=== PATIENT | female | born 1990 | race Two or more races ===

== ENCOUNTER 2021-10-24 06:37 | Inpatient (IN) | payer OTHER ==
[2021-10-24] VITALS (7 sets, daily range): BP systolic 101–122; BP diastolic 55–80
[~2021-10-24] VITALS: Ht 167.6 cm; Wt 78.2 kg
[2021-10-24] MEDS ORDERED: OXYTOCIN INJ 10 UNITS/ML VIAL (J2590) IV PRN (07:25)
[2021-10-24] MEDS ORDERED: TRANEXAMIC ACID INJection 1,000 MG in NS 100 ML IV PRN (07:25)
[2021-10-24] MEDS ORDERED: METHYLERGONOVINE MALEATE 0.2 MG/ML VIAL (J2210) IM PRN (07:25)
[2021-10-24] MEDS ORDERED: LIDOCAINE 1% MDV 20ML VIAL INFIL PRN (07:25)
[2021-10-24] MEDS ORDERED: OXYTOCIN DRIP 30 UNITS in IV 1 EA IV PRN ×4 (07:25)
[2021-10-24] MEDS ORDERED: CARBOPROST TROMETHAMINE 250 MCG/ML AMP IM PRN (07:25)
[2021-10-24 08:28] LABS: HEMATOCRIT 35.7 % (36.0-47.0); HEMOGLOBIN 12.3 g/dl (12.0-15.5); MEAN CORPUSCULAR HEMOGLOBIN 30.8 pg (27.0-33.0); MEAN CORPUSCULAR HGB CONC 34.5 g/dl (32.0-36.5); MEAN CORPUSCULAR VOLUME 89.3 fl (80.0-96.0); PLATELET COUNT, AUTOMATED 213 10^3/uL (150-450); WHITE BLOOD COUNT 19.5 10^3/uL (4.0-10.0)
[2021-10-24] MEDS ORDERED: PRENATAL VITAMINS CHEWABLE TABLET PO SCH (09:00)
[2021-10-24] MEDS ORDERED: DOCUSATE SODIUM 100MG CAPSULE PO PRN (09:20)
[2021-10-24] MEDS ORDERED: METHYLERGONOVINE MALEATE 0.2 MG TAB PO PRN (09:20)
[2021-10-24] MEDS ORDERED: DIBUCAINE 1% OINTMENT 30GM TOP PRN (09:20)
[2021-10-24] MEDS ORDERED: IBUPROFEN 800 MG TAB PO PRN (09:20)
[2021-10-24] MEDS ORDERED: ACETAMINOPHEN 500 MG TAB PO PRN (09:20)
[2021-10-24] MEDS ORDERED: ACETAMINOPHEN TAB 650MG DOSE (2X325MG) PO PRN (09:20)
[2021-10-24] MEDS ORDERED: IBUPROFEN 600MG TAB PO PRN (09:20)
[2021-10-25 05:32] VITALS: BP 107/62
[2021-10-25] MEDS ORDERED: COLA100C5 PO (07:29)
[2021-10-25] MEDS ORDERED: IBUP-1022 PO (07:29)
[2021-10-25] MEDS ORDERED: PRENCHW PO (07:29)
== END 2021-10-25 12:10 | disposition home or self-care (01) | DRG 807 ==
LOC: M LDO 06:37 → M LDI 07:06 → EDBD 07:06 → M OBS 10:41
PROVIDERS: ADMIT Advanced Practice Midwife; ATTEND Advanced Practice Midwife
PROC: 10E0XZZ Delivery of Products of Conception, External Approach (ICD-10-PCS; principal; 2021-10-24)
DX: O69.1XX0 Labor and delivery complicated by cord around neck, with compression, not applicable or unspecified (principal); Z37.0 Single live birth; Z3A.39 39 weeks gestation of pregnancy

== ENCOUNTER → 2024-01-07 | Outpatient (CLI) | payer OTHER ==
[~2024-01-07] MED LIST: COLA100C5 PO; IBUP-1022 PO; PRENCHW PO
== END ==
LOC: M RAD 12:22
PROVIDERS: ATTEND Orthopaedic Surgery
DX: M25.571 Pain in right ankle and joints of right foot (principal); M67.471 Ganglion, right ankle and foot

== ENCOUNTER 2024-10-30 06:22 | Day surgery (SDC) | payer OTHER ==
[~2024-10-30] VITALS: Ht 170.2 cm; Wt 68.0 kg
[~2024-10-30 06:22] MED LIST changes: +BUPR150T12 PO; +CELE0.09 PO; +DROS3TAB PO; +SPIR-10 PO
[2024-10-30] MEDS ORDERED: LR 1,000 ML IV SCH (06:45)
[2024-10-30] MEDS ORDERED: LIDOCAINE 2% 100 MG/5 ML SDV (FOR ANES.) As Ordered ONE (06:49)
[2024-10-30] MEDS ORDERED: ONDANSETRON 4MG 2ML VIAL As Ordered ONE (06:49)
[2024-10-30] MEDS ORDERED: KETOROLAC 30 MG/ML 1 ML VIAL As Ordered ONE (06:49)
[2024-10-30] MEDS ORDERED: ROCURONIUM BROMIDE 50MG/5ML VIAL As Ordered ONE (06:49)
[2024-10-30] MEDS ORDERED: dexAMETHasone 4 MG/ML 1 ML VIAL As Ordered ONE (06:49)
[2024-10-30] MEDS ORDERED: SUGAMMADEX SODIUM 500 MG/5 ML VIAL As Ordered ONE (06:49)
[2024-10-30] MEDS ORDERED: MIDAZOLAM INJ 2 MG/2 ML VIAL As Ordered ONE (06:55)
[2024-10-30] MEDS ORDERED: MIDAZOLAM INJ 2 MG/2 ML VIAL IV ONE (07:20)
[2024-10-30] MEDS: SCOPOLAMINE 1MG TRANSDERMAL PATCH TOP ONE (07:22)
[2024-10-30] MEDS ORDERED: ACETAMINOPHEN 1000MG/100ML IV BAG As Ordered ONE (07:44)
[2024-10-30] MEDS ORDERED: MORPHINE 2 MG/ML 1 ML VIAL IV PRN (08:40)
[2024-10-30] MEDS: ONDANSETRON 4MG 2ML VIAL IV PRN (09:25)
[2024-10-30 10:05] VITALS: BP 121/71; TEMP 96.9; O2SAT 100
== END 2024-10-30 10:05 | disposition home or self-care (01) ==
LOC: M SDC 06:22
PROVIDERS: ATTEND General Practice
DX: Z30.2 Encounter for sterilization (principal); Z88.2 Allergy status to sulfonamides; Z88.8 Allergy status to other drugs, medicaments and biological substances; K21.9 Gastro-esophageal reflux disease without esophagitis; F41.9 Anxiety disorder, unspecified; F32.A Depression, unspecified; G43.909 Migraine, unspecified, not intractable, without status migrainosus; E28.2 Polycystic ovarian syndrome; Z79.899 Other long term (current) drug therapy
CPT/HCPCS: 36415; 58300; 58661; 81025; 86850; 86900; 86901; 88302; 88305; J0131; J0665; J0690; J1100; J1885; J2250; J2405; J3010; J7298